=== PATIENT | male | born 1940 | race Caucasian/White ===

== ENCOUNTER → 2021-04-07 | Outpatient (CLI) | payer OTHER ==
[~2021-04-07] MED LIST: ALLO300T2 PO; AMLO25PO MC; ASPI-556 PO; ATOR20TA65 PO; CINN500C PO; FOLI0.4T6 PO; GARL1000 PO; LOSA1TAB54 PO; LUTE1CAP4 PO; RESV100C PO; SOTA80TA PO; VIT1TABL66 PO
== END | disposition home or self-care (01) ==
LOC: OIH 09:55
PROVIDERS: ATTEND Family Medicine
DX: M16.11 Unilateral primary osteoarthritis, right hip (principal); M47.816 Spondylosis without myelopathy or radiculopathy, lumbar region; M47.818 Spondylosis without myelopathy or radiculopathy, sacral and sacrococcygeal region
CPT/HCPCS: 72100; 72220; 73502

== ENCOUNTER → 2022-09-22 | Outpatient (CLI) | payer MEDICARE | END | disposition home or self-care (01) | LOC: RAH 09:56 | PROVIDERS: ATTEND Family Medicine | DX: L03.115 Cellulitis of right lower limb (principal); M79.89 Other specified soft tissue disorders | CPT/HCPCS: 73630 ==

== ENCOUNTER → 2023-08-30 | Outpatient (CLI) | payer MEDICARE ==
[~2023-08-30] MED LIST changes: -GARL1000 PO; +GARL10002 PO
== END | disposition home or self-care (01) ==
LOC: RAH 13:50
PROVIDERS: ATTEND Orthopaedic Surgery
DX: H71.92 Unspecified cholesteatoma, left ear (principal)
CPT/HCPCS: 70480

== ENCOUNTER → 2023-10-14 | Outpatient (CLI) | payer MEDICARE ==
[2023-10-14 15:15] LABS: PROTHROMBIN TIME 47.7 SEC (9.6-11.6)
[2023-10-14 15:16] LABS: INR 4.52 (0.85-1.15)
== END | disposition home or self-care (01) ==
LOC: LAB 09:10
PROVIDERS: ATTEND Internal Medicine Cardiovascular Disease
DX: Z79.01 Long term (current) use of anticoagulants (principal)
CPT/HCPCS: 36415; 85610

== ENCOUNTER → 2023-10-21 | Outpatient (CLI) | payer MEDICARE ==
[2023-10-21 12:58] LABS: INR 2.54 (0.85-1.15); PROTHROMBIN TIME 25.5 SEC (9.6-11.6)
== END | disposition home or self-care (01) ==
LOC: LAB 09:18
PROVIDERS: ATTEND Internal Medicine Cardiovascular Disease
DX: Z79.01 Long term (current) use of anticoagulants (principal)
CPT/HCPCS: 36415; 85610

== ENCOUNTER → 2023-11-26 | Outpatient (CLI) | payer MEDICARE ==
[2023-11-29 09:10] LABS: FREE KAPPA LIGHT CHAINS,S 20.7 mg/L (3.3-19.4)
[2023-11-29 18:09] LABS: ALBUMIN (IFE & ELECTROPHOR) 3.5 g/dL (2.9-4.4); ALBUMIN/GLOBULIN RATIO (IFE) 1.2 (0.7-1.7); ALPHA-1 (IFE & PEP) 0.3 g/dL (0.0-0.4); ALPHA-2 (IFE & PEP) 0.8 g/dL (0.4-1.0); GAMMA GLOBULINS (IFE & ELP) 0.9 g/dL (0.4-1.8); IGA (IFE) 231 mg/dL (61-437); IGG (IMMUNOFIXATION) 876 mg/dL (603-1613); IGM (IMMUNOFIXATION) 39 mg/dL (15-143); M-SPIKE (IEP) Not Observed g/dL (Not Observed); TOTAL PROTEIN 6.5 g/dL (6.0-8.5)
== END | disposition home or self-care (01) ==
LOC: LAB 09:47
PROVIDERS: ATTEND Internal Medicine Cardiovascular Disease
DX: I10 Essential (primary) hypertension (principal); I25.10 Atherosclerotic heart disease of native coronary artery without angina pectoris; I48.91 Unspecified atrial fibrillation; Z79.01 Long term (current) use of anticoagulants
CPT/HCPCS: 36415; 83521; 86334

== ENCOUNTER → 2024-03-02 | Outpatient (CLI) | payer MEDICARE ==
--- NOTE | 2024-03-02 16:33 | HMCIMG ---
CHEST 2VWS HISTORY: Cough COMPARISON: None FINDINGS: Frontal and lateral projections of the chest were obtained. There are prominent interstitial markings. Mild bilateral lower lung infiltrates. The heart is not enlarged. No evidence of aortic calcification is seen. Degenerative changes are seen of the thoracolumbar spine. IMPRESSION: 1. There are prominent interstitial markings. Mild bilateral lower lung infiltrates.
== END | disposition home or self-care (01) ==
LOC: RAH 15:45
PROVIDERS: ATTEND Nurse Practitioner
DX: R91.8 Other nonspecific abnormal finding of lung field (principal); R05.9 Cough, unspecified; M47.815 Spondylosis without myelopathy or radiculopathy, thoracolumbar region
CPT/HCPCS: 71046